=== PATIENT | female | born 1970 | race Caucasian/White ===

== ENCOUNTER 2017-08-23 21:33 | Emergency (ER) | payer MEDICAID ==
[2017-08-24 01:58] VITALS: BP 119/67
== END 2017-08-24 00:52 | disposition home or self-care (01) ==
LOC: ED 21:33
DX: M65.4 Radial styloid tenosynovitis [de Quervain] (principal)

== ENCOUNTER 2018-11-09 12:40 | Emergency (ER) | payer SELFPAY ==
[~2018-11-09] VITALS: Ht 154.9 cm; Wt 58.1 kg
[2018-11-09 12:44] VITALS: BP 113/75; Ht 154.9 cm; Wt 58.1 kg
== END 2018-11-09 13:24 | disposition home or self-care (01) ==
LOC: ED 12:40
DX: K12.2 Cellulitis and abscess of mouth (principal)